=== PATIENT | male | born 1990 | race Caucasian/White ===

== ENCOUNTER 2022-02-23 21:07 | Inpatient (IN) | payer MEDICAID, SELFPAY ==
[2022-02-23 21:04] VITALS: BMI 20.9
[2022-02-23 21:07] VITALS: BP 98/67; PULSE 99; RESP 18; TEMP 36.6; O2SAT 99
[2022-02-23 21:34] VITALS: BMI 22.2
[2022-02-23] MEDS: CLONazepam 1 mg Tablet PO (22:04)
[2022-02-23] MEDS: trazodone 100 mg Tablet PO (22:04)
--- NOTE | 2022-02-23 22:32 | PC.ADMIT ---
[address] Admission Note: The patient,Jonathan Payton,31 y/o, was given written information regarding hospital policies, unit procedures and contact persons. Patient's smoking status: . Vital Signs - 8 hr 02/23/22 21:07 Temperature 97.8 F Pulse Rate 99 Respiratory Rate 18 Blood Pressure 98/67 Pulse Oximetry 99 Patient alert and oriented x 4, calm and cooperative. Patient states he has been using drugs since the age of 12 and currently uses meth daily, marijuana weekly, and used LSD a week or two ago. Patient states he has not been taking any of his perscribed psych meds for about 2 weeks except for his klonopin because it helps with his anxiety, but currently has perscriptions for Celexa, Vraylar, Trazodone, and Klonopin. Patient states he has a hx of PTSD, MDD, and Bipolar, and currently sees an outpt psych in [place]. He was recently started him on invega, but it made him very sleepy and he never took it. He has been homeless for the past 6 months and has a hx of multiple psych hospitalizations which he denies. He denies SI/HI but does endorse AH/VH of strange shadow beings that are killing each other. He states he currently has pre-trial checkins on mondays in [facility] and has been arrested for drugs a few times. Patient states he would like to get meds adjusted. Patient was oriented to unit, given packet and reviewed unit schedule, skin assessment and initial interview completed, reviewed and signed all forms, verbalized understanding and voiced no concerns.
[2022-02-24 06:00] VITALS: BP 97/55; PULSE 67; RESP 14; TEMP 36.4; O2SAT 95
[2022-02-24] MEDS: nicotine 2 mg Gum BUCCAL ×4 (06:40→20:30)
[2022-02-24] MEDS: CLONazepam 1 mg Tablet PO ×2 (08:15→20:29)
[2022-02-24] MEDS: citalopram 20 mg Tablet 40 MG PO (08:15)
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
[2022-02-24 14:00] VITALS: BP 101/65; PULSE 107; RESP 17; TEMP 36.9; O2SAT 96
[2022-02-24] MEDS: hyDROXYzine 25 mg Capsule 50 MG PO (14:28)
--- NOTE | 2022-02-24 14:30 | PC.NURSE ---
PRN VISTARIL 50 MG GIVEN PO PER PT C/O STATED ANXIETY
[2022-02-24] MEDS: trazodone 100 mg Tablet PO (20:29)
[2022-02-24 21:08] VITALS: BP 105/60; PULSE 56; RESP 18; TEMP 36.6; O2SAT 97
[2022-02-25 06:00] VITALS: BP 106/65; PULSE 64; RESP 16; TEMP 36.6; O2SAT 97
[2022-02-25] MEDS: citalopram 20 mg Tablet 40 MG PO (08:49)
[2022-02-25] MEDS: CLONazepam 1 mg Tablet PO ×2 (08:50→20:46)
[2022-02-25] MEDS: nicotine 2 mg Gum BUCCAL ×2 (08:50→12:30)
[2022-02-25] MEDS: OLANZapine 5 mg ODT PO (13:09)
[2022-02-25 14:00] VITALS: BP 89/50; PULSE 62; RESP 16; TEMP 36.6; O2SAT 97
--- NOTE | 2022-02-25 14:31 | PC.NURSE ---
PT BP WAS LOW AT 1400 VITALS PER TELEGRAPH EQUIPMENT MAINTAINER REPORT, 89/50. WENT TO PT ROOM TO INSTRUCT PT TO GET UP OUT OF BED AND DRINK FLUID, PT STATES IM NOT FUCKING SITTING IN THERE PT ASKED IF HE WOULD GET UP AND WALK THE HALLS AND PT DID, WALKING WITH THIS NURSE PT SAID NOW YOU GIVE A FUCK BECAUSE YOUR GONNA GET IN TROUBLE FOR GIVING ME A ZYPREXA INFORMED PT HE REQUESTED ZYPREXA FOR ANXIETY AND I WAS CONCERNED ABOUT LOW BP, PT STATES FUCK YOU IM NOT DOIN SHIT AND RETURNED BACK TO BED TO SLEEP. PT ALSO REFUSED WATER THAT WAS BROUGHT TO ROOM, DR LAMBERT INFORMED OF LOW BP AND PTS OUTBURST
--- NOTE | 2022-02-25 18:34 | W.PM.NPUPNS ---
Subjective NPU Subjective: Patient presents today essentially unchanged from yesterday. He continues to be a resistant historian with a fairly irritable vibe when answering questions. Any suggestion about adding a conversation of any length about how he is doing or the situation leading to this presentation is met with resistance and a reported desire to lay down. He just continues to endorse being okay. Mental Status Exam MSE Comments: This is a well-nourished well-developed white male in hospital scrubs with limited grooming and eye contact.? No abnormal movements except for psychomotor retardation.? Mostly uncooperative with exam in mild distress.? Speech was limited and decreased rate and volume.? Mood described as fine, affect subdued and irritable Thought process linear.? Thought content: Did not answer questions in the area but there was no aggression towards himself or others, he did not report any delusions and none were noted in the limited conversation and not to be attending to internal stimuli.? Attention and concentration were limited and memory was unable to evaluate, but none were formally tested.? He was possible and oriented to person and place.? Insight and judgment are impaired impulse control is impaired. Vitals/I&O/Wt Last Vital Signs Temp 97.8 F 02/25/22 14:00 Pulse 62 02/25/22 14:00 Resp 16 02/25/22 14:00 BP 89/50 02/25/22 14:00 Pulse Ox 97 02/25/22 14:00 Weight last 48 hrs Weight 72.393 kg Weight 68.039 kg A&P Assessment and plan (1) Methamphetamine use disorder, severe: Status: Acute (2) Depression: Status: Acute (3) Anxiety: Status: Acute (4) Psychosis: Status: Acute Plan This is a 31-year-old white male with a significant history of mental health and addiction issues with recent nonadherence to his medication and active methamphetamine use who presents as an unwilling historian sent to the hospital secondary to psychosis and concern for lethality. 1.? Continue current medication.Consider restarting medications.? Patient on Vraylar which was simply coming very difficult to get without insurance we will work with him to change medications and initiate medications once he is cooperative. 2.? Continue every 15 minute checks for safety. 3.? Encourage individual, group and milieu therapies. 4.? Encourage sober living treatment after discharge at the highest level of care to which he is willing to commit. Involuntary Hold Information 96 Hour Hold: 96 Hour Involuntary Admission: No Attestations NPU Medical Necessity Statement*: Inpatient hospitalization is medically necessary and the clinically appropriate intervention at this time. We will monitor medication to make changes as indicated. Likely length of stay 3 to 5 days. Coding Level of Care Code Acute Title Vehicle Service Attendant for [facility] Fwd Diagnoses Methamphetamine use disorder, severe F15.20 Depression F32.A Anxiety F41.9 Psychosis F29
[2022-02-25 20:39] VITALS: BP 107/64; PULSE 80; RESP 18; TEMP 36.5; O2SAT 96
[2022-02-25] MEDS: trazodone 100 mg Tablet PO (20:46)
[2022-02-26 06:00] VITALS: BP 114/74; PULSE 81; RESP 20; TEMP 36.8; O2SAT 98
[2022-02-26] MEDS: nicotine 2 mg Gum BUCCAL ×2 (06:32→10:35)
[2022-02-26] MEDS: citalopram 20 mg Tablet 40 MG PO (08:50)
[2022-02-26] MEDS: CLONazepam 1 mg Tablet PO ×2 (08:50→20:23)
[2022-02-26] MEDS: nicotine 21 mg Patch 1 PATCH TRANSDERMA (11:00)
[2022-02-26 14:00] VITALS: BP 108/68; PULSE 117; RESP 18; TEMP 36.3; O2SAT 98
[2022-02-26] MEDS: OLANZapine 5 mg ODT PO ×2 (14:10→17:19)
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
[2022-02-26] MEDS: trazodone 100 mg Tablet PO (20:23)
[2022-02-26 20:28] VITALS: BP 120/80; PULSE 89; RESP 16; TEMP 36.8; O2SAT 98
[2022-02-26] MEDS: trazodone 50 mg Tablet PO (21:38)
[2022-02-27 06:00] VITALS: BP 108/74; PULSE 77; RESP 20; TEMP 36.5; O2SAT 97
[2022-02-27] MEDS: nicotine 2 mg Gum BUCCAL (06:22)
[2022-02-27] MEDS: CLONazepam 1 mg Tablet PO (08:55)
[2022-02-27] MEDS: citalopram 20 mg Tablet 40 MG PO (08:55)
[2022-02-27] MEDS: nicotine 21 mg Patch 1 PATCH TRANSDERMA (09:39)
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
[2022-02-27 10:37] VITALS: BP 108/74; PULSE 77; RESP 20; TEMP 36.5; O2SAT 97
--- NOTE | 2022-02-27 12:44 | PC.NURSE ---
DISCHARGE NOTE DISCHARGE TEACHING COMPLETED. VERBALIZES UNDERSTANDING. MEDICATIONS RETURNED AND SHEET SIGNED THAT MEDS WERE RETURNED TO PT. LEFT WITH ALL BELONGINGS WITH PAPER WORK SIGNED THAT HE DID RECEIVE THEM. GAVE PT CLOTHING FROM CLOSET DUE TO HIS CLOTHING BEING WET ON ADMISSION. EDUARDOONOPIN SCRIPT SENT IN TO [facility] IN [place]. LEFT VIA MEDICAID RIDE. DENIES PAIN. DENIES SI/HI AND AVH AT THIS TIME. NO DISTRESS NOTED. VSS. ALL QUESTIONS ANSWERED AND SUPPORT VOICED.
== END 2022-02-27 12:45 | disposition home or self-care (01) | DRG 885 ==
PROVIDERS: Admitting Provider Psychiatry & Neurology Psychiatry; PCP Psychiatry & Neurology Psychiatry; Visit Provider Psychiatry & Neurology Psychiatry
DX: F29 Unspecified psychosis not due to a substance or known physiological condition (principal); F15.20 Other stimulant dependence, uncomplicated; F32.A Depression, unspecified; F41.9 Anxiety disorder, unspecified; Z59.00 Homelessness unspecified; Z91.14 Patient's other noncompliance with medication regimen
CPT/HCPCS: 97150; 97165